=== PATIENT | male | born 2000 | race Caucasian/White ===

== ENCOUNTER 2019-03-13 13:53 | Emergency (ER) | payer MEDICAID ==
[~2019-03-13] VITALS: Ht 172.7 cm; Wt 73.0 kg
[2019-03-13] MEDS ORDERED: KETOROLAC 30MG/ML VIAL IM ONE (14:45)
[2019-03-13] MEDS ORDERED: BACITRACIN ZINC OINT UDPKT TOP ONE (14:45)
[2019-03-13] MEDS ORDERED: BACITRACIN 15GM TUBE TOP NR ×2 (15:15)
[2019-03-13 16:05] VITALS: BP 120/85
== END 2019-03-13 16:08 | disposition home or self-care (01) ==
LOC: ER 14:09
DX: S50.01XA Contusion of right elbow, initial encounter (principal); S90.812A Abrasion, left foot, initial encounter; S90.811A Abrasion, right foot, initial encounter; S80.212A Abrasion, left knee, initial encounter; S80.211A Abrasion, right knee, initial encounter; V09.9XXA Pedestrian injured in unspecified transport accident, initial encounter; Y93.89 Activity, other specified; Y92.89 Other specified places as the place of occurrence of the external cause; Y99.8 Other external cause status
CPT/HCPCS: 73080; 96372; 99283; J1885